=== PATIENT | male | born 1950 | race Caucasian/White ===

== ENCOUNTER 2017-08-19 11:49 | Outpatient (CLI) | payer OTHER ==
--- NOTE | 2017-08-19 17:02 | XRAY Report ---
LEFT FINGERS: 08/19/2017 COMPARISON: None. INDICATION: Chronic left 4th digit pain. FINDINGS: There is gross soft tissue swelling about the middle finger proximal interphalangeal joint. No defini te erosions are seen. No evidence of acute fracture. Alignment appears anatomic. IMPRESSION: THERE IS GROSS SOFT TISSUE SWELLING OF THE THIRD PIP JOINT. CORRELATE CLINICALLY FOR INF ECTION OR OTHER PROCESS. JOB #: [id number] EXT JOB #:[id number]
== END 2017-08-19 11:50 | disposition home or self-care (01) ==
LOC: DI 11:49
PROVIDERS: ATTEND Family Medicine
DX: M10.9 Gout, unspecified (principal)
CPT/HCPCS: 73140

== ENCOUNTER 2020-01-11 07:03 | Outpatient (CLI) | payer MEDICARE ==
[2020-01-11 10:31] LABS: ALBUMIN 4.1 g/dL (3.2-5.5); ALBUMIN/GLOBULIN RATIO 1.2 (1.0-2.2); ALKALINE PHOSPHATASE 65 IU/L (42-121); ALT ALANINE AMINOTRANSFERASE 41 IU/L (10-60); AST ASPARTATE AMINOTRANSFERASE 29 IU/L (10-42); BILIRUBIN,TOTAL 1.1 mg/dL (0.2-1.0); BUN - BLOOD UREA NITROGEN 23 mg/dL (6-20); CALCIUM 9.2 mg/dL (8.5-10.3); CARBON DIOXIDE - CO2 26 mmol/L (21-32); CHLORIDE 102 mmol/L (101-111); CHOL/HDL RATIO 4.7 (<5.0); CHOLESTEROL 196 mg/dL; CREATININE 1.2 mg/dL (0.6-1.2); GFR - MDRD 60 (>89); GLUCOSE 109 mg/dL (70-100); HDL CHOLESTEROL 42 mg/dL; LDL CHOLESTEROL,CALCULATED 124 mg/dL; SODIUM 136 mmol/L (135-145); TOTAL PROTEIN 7.6 g/dL (6.7-8.2); VLDL CHOLESTEROL 30 mg/dL
== END 2020-01-11 07:04 | disposition home or self-care (01) ==
LOC: LAB.S 07:03
PROVIDERS: ATTEND Internal Medicine
DX: I10 Essential (primary) hypertension (principal); Z12.5 Encounter for screening for malignant neoplasm of prostate
CPT/HCPCS: 36415; 80053; 80061; 83721; 84153

== ENCOUNTER 2020-01-11 07:49 | Outpatient (CLI) | payer MEDICARE ==
--- NOTE | 2020-01-11 15:02 | Ultrasound Report ---
Reason: HX OF TOBACCO USE Procedure Date: 01/11/2020 Accession Number: [id number] / [id number] Procedure: US - Aorta Screening CPT Code: Final Report FULL RESULT: EXAM: AORTIC DOPPLER ULTRASOUND EXAM DATE: 01/11/2020 08:40 AM. CLINICAL HISTORY: History of tobacco use and hypertension. Screening for abdominal aortic aneurysm. COMPARISON: None. TECHNIQUE: Real-time sonographic imaging of retroperitoneal vascular structures, including color-flow, Doppler flow and spectral analysis was performed by the data processing auditor. Multiple home office representative static images were saved for review. FINDINGS: Aorta: The abdominal aorta was adequately visualized. No evidence for abdominal aortic aneurysm. Aorta proximal: Sagittal plane AP 2.6 x 2.3 cm. Aorta mid: Transverse: 2.3 x 1.9 cm. Aorta distal: Transverse: 1.5 x 1.8 cm. Caliber within normal limits: Yes. Plaque Visualized: Yes aorta distally. Right iliac: Transverse: 1.2 x 1.3 cm. Left iliac: Transverse: 1.3 x 1.4 cm. Iliac Vessels: The visualized proximal common iliac arteries are normal in caliber. Other: None. IMPRESSION: No abdominal aortic aneurysm. RADIA
== END 2020-01-11 07:50 | disposition home or self-care (01) ==
LOC: DI 07:49
PROVIDERS: ATTEND Internal Medicine
DX: Z00.00 Encounter for general adult medical examination without abnormal findings (principal); Z13.6 Encounter for screening for cardiovascular disorders; Z87.891 Personal history of nicotine dependence; I10 Essential (primary) hypertension; Z12.5 Encounter for screening for malignant neoplasm of prostate
CPT/HCPCS: 36415; 76706; 80053; 80061; G0103; 83721; 84153

== ENCOUNTER 2020-01-18 13:33 | Outpatient (CLI) | payer MEDICARE | END 2020-01-18 13:34 | disposition home or self-care (01) | LOC: LAB.S 13:33 | PROVIDERS: ATTEND Registered Nurse | DX: M1A.9XX0 Chronic gout, unspecified, without tophus (tophi) (principal) | CPT/HCPCS: 36415; 84550 ==

== ENCOUNTER 2021-01-16 07:25 | Outpatient (CLI) | payer MEDICARE ==
[2021-01-16 15:00] LABS: BASOPHILS # (AUTO) 0.1 10^3/uL (0.0-0.1); BASOPHILS % (AUTO) 0.9 %; EOSINOPHILS # (AUTO) 0.4 10^3/uL (0.0-0.7); EOSINOPHILS % (AUTO) 6.3 %; HCT - HEMATOCRIT 45.8 % (42.0-52.0); HGB - HEMOGLOBIN 15.2 g/dL (14.0-18.0); LYMPHOCYTES # (AUTO) 2.3 10^3/uL (1.5-3.5); LYMPHOCYTES % (AUTO) 32.8 %; MEAN CORPUSCULAR HEMOGLOBIN 31.2 pg (27.0-31.0); MEAN CORPUSCULAR HGB CONC 33.2 g/dL (32.0-36.0); MEAN PLATELET VOLUME 11.5 fL (7.4-11.4); MONOCYTES # (AUTO) 0.7 10^3/uL (0.0-1.0); MONOCYTES % (AUTO) 10.5 %; NEUTROPHILS # (AUTO) 3.4 10^3/uL (1.5-6.6); NEUTROPHILS % (AUTO) 49.4 %; PLT - PLATELET COUNT 207 10^3/uL (130-450); RED BLOOD COUNT 4.87 10^6/uL (4.70-6.10); RED CELL DISTRIBUTION WIDTH 13.8 % (12.0-15.0)
[2021-01-16 16:14] LABS: ALBUMIN 3.9 g/dL (3.2-5.5); ALBUMIN/GLOBULIN RATIO 1.1 (1.0-2.2); ALKALINE PHOSPHATASE 68 IU/L (42-121); ALT ALANINE AMINOTRANSFERASE 42 IU/L (10-60); AST ASPARTATE AMINOTRANSFERASE 31 IU/L (10-42); BILIRUBIN,TOTAL 0.9 mg/dL (0.2-1.0); BUN - BLOOD UREA NITROGEN 19 mg/dL (6-20); CALCIUM 9.3 mg/dL (8.5-10.3); CARBON DIOXIDE - CO2 25 mmol/L (21-32); CHLORIDE 103 mmol/L (101-111); CHOLESTEROL 163 mg/dL; CREATININE 1.1 mg/dL (0.6-1.2); GFR - MDRD 67 (>89); GLUCOSE 107 mg/dL (70-100); HDL CHOLESTEROL 41 mg/dL; LDL CHOLESTEROL,CALCULATED 105 mg/dL; LDL/HDL RATIO 2.6 (<3.6); POTASSIUM 4.2 mmol/L (3.5-5.0); SODIUM 136 mmol/L (135-145); TOTAL PROTEIN 7.4 g/dL (6.7-8.2); TRIGLYCERIDES 83 mg/dL; URIC ACID 5.5 mg/dL (2.6-7.2); VLDL CHOLESTEROL 17 mg/dL
== END 2021-01-16 07:26 | disposition home or self-care (01) ==
LOC: LAB.S 07:25
PROVIDERS: ATTEND Internal Medicine
DX: I10 Essential (primary) hypertension (principal); M1A.9XX0 Chronic gout, unspecified, without tophus (tophi); Z12.5 Encounter for screening for malignant neoplasm of prostate
CPT/HCPCS: 36415; 80053; 80061; 84550; 85025; G0103; 83721; 84153

== ENCOUNTER 2021-02-19 10:53 | Outpatient (CLI) | payer MEDICARE ==
--- NOTE | 2021-02-19 12:45 | CARDIAC PROCEDURE NOTE ---
Stress Test Report Service Date: 02/19/21 Ordering Provider: Dr Cristhian Knpap Indication for Test: Shortness of breath Cardiac Risk Factors: Male gender, HTN, ex-smoker. Type of Stress Test: Exercise Treadmill Test (ETT) Procedure: After signing informed consent, the patient underwent a Paco-protocol treadmill stress test. No cardiac imaging was ordered with this test. Resting heart rate: 66 Peak heart rate: 140 (92% pred maximum heart rate for age) Resting BP: 149/83 Peak BP: 197/81 The patient exercised for 7 min on a Paco-protocol treadmill. He achieved a peak HR of 142 (92% PMHR) and 8.6 METS. He developed moderate SOB with exercise, but had no chest pain. O2 sat was 95% at rest on room air and dropped with exercise, the lowest saturation was 88% (on room air). He reported his perceived exertion as 15/20 on the Jonny scale at peak. Resting EKG: Normal sinus rhythm, LVH voltage. EKG at peak: [address] segment depressions in leads II, III, AVF and V4- V6 with flat T waves in V4-V6. Summary: 1) Abnormal resting EKG suggesting LVH is present. 2) Hypertensive BP response to exercise. 3) Significant oxygen desaturation to 88% on room air occurs with exercise. 4) Non-specific EKG changes develop with exercise, cannot R/O ischemia. 5) No cardiac imaging was ordered with this test. IMPRESSIONS: 1) Poor exercise tolerance. 2) Oxygen desaturation with exercise is significant. 3) Cannot R/O coronary ischemia from this test. 4) This patient's cardiac risk: High RECOMMENDATIONS: 1) PFTs 2) Consider obtaining an Echocardiogram to evaluate for LVH. 3) Repeat stress test with cardiac imaging is advised.
== END 2021-02-19 10:54 | disposition home or self-care (01) ==
LOC: DI 10:53
PROVIDERS: ATTEND Internal Medicine
DX: R06.02 Shortness of breath (principal); R94.31 Abnormal electrocardiogram [ECG] [EKG]

== ENCOUNTER 2021-03-14 09:39 | Outpatient (CLI) | payer MEDICARE | END 2021-03-14 09:40 | disposition home or self-care (01) | LOC: RT 09:39 | PROVIDERS: ATTEND Internal Medicine | DX: R06.02 Shortness of breath (principal) | CPT/HCPCS: 94010 ==

== ENCOUNTER 2021-05-19 12:54 | Outpatient (CLI) | payer MEDICARE ==
--- NOTE | 2021-05-19 15:00 | MRI Report ---
PROCEDURE: Lumbar Spine W/O INDICATIONS: LUMBAR RADICULOPATHY, LUMBAR SPINAL FUSION TECHNIQUE: Noncontrast sagittal T1 spin echo and T2 fast echo, sagittal STIR, axial T1 and T2 fast spin echo thr ough the lumbar spine. Axial and oblique coronal T1 spin echo and STIR through the sacrum. In cases with scoliosis, additional coronal T2 fast spin echo may be performed. COMPARISON: None. FINDINGS: Alignment and Curvature: Mild levocurvature of the lumbar spine. Straightening of the normal lordoti c curvature. Bone Marrow: Multilevel endplate degenerative sclerosis and spurring. Diffuse facet arthropathy. No evidence of acute fracture. Few scattered endplate Schmorl's nodes. Spinal Cord: Conus medullaris terminates at the L1 level. Visualized cord demonstrates normal signa l and size. Paraspinous Soft Tissues: No paravertebral masses. Presumed bilateral T2 hyperintense renal cysts, technically nonspecific. T12-L1: Normal in appearance. L1-L2: No canal or left foraminal narrowing.Mild right foraminal narrowing. L2-L3: Mild to moderate canal narrowing. Partial effacement of the left and right lateral recesses with symmetric appearance. Mild bilateral foraminal stenoses. L3-L4: Mild to moderate canal narrowing. Partial effacement of the left and right lateral recesses with symmetric appearance. Moderate left and severe right foraminal stenosis, with slight nerve root compression on the right. L4-L5: Mild canal narrowing. Partial effacement of the left and right lateral recesses with symmetr ic appearance. Moderate bilateral foraminal narrowing. L5-S1: No canal or lateral recess narrowing. Severe right foraminal stenosis with nerve root compre ssion. Moderate to severe left foraminal stenosis. Sacrum: Visualized sacral plexus appears normal. IMPRESSION: Mild levocurvature. Numerous bilateral foraminal stenoses as detailed above by spinal level. Mild to moderate canal narro wing L2-L3 and L3-L4. Straightening of the normal lordotic curvature. Reviewed by: Tunde Boothe MD on 05/19/2021 2:58 PM PDT Approved by: Tunde Boothe MD on 05/19/2021 2:58 PM PDT Station ID: [id number]
== END 2021-05-19 12:55 | disposition home or self-care (01) ==
LOC: DI 12:54
PROVIDERS: ATTEND Internal Medicine
DX: M48.061 Spinal stenosis, lumbar region without neurogenic claudication (principal)

== ENCOUNTER 2022-01-22 08:24 | Outpatient (CLI) | payer MEDICARE ==
[2022-01-22 15:18] LABS: BASOPHILS # (AUTO) 0.1 10^3/uL (0.0-0.1); BASOPHILS % (AUTO) 0.7 %; EOSINOPHILS # (AUTO) 0.3 10^3/uL (0.0-0.7); EOSINOPHILS % (AUTO) 3.3 %; HCT - HEMATOCRIT 44.2 % (42.0-52.0); HGB - HEMOGLOBIN 14.8 g/dL (14.0-18.0); LYMPHOCYTES # (AUTO) 2.5 10^3/uL (1.5-3.5); LYMPHOCYTES % (AUTO) 33.2 %; MEAN CORPUSCULAR HEMOGLOBIN 31.4 pg (27.0-31.0); MEAN CORPUSCULAR HGB CONC 33.5 g/dL (32.0-36.0); MEAN CORPUSCULAR VOLUME 93.8 fL (80.0-94.0); MEAN PLATELET VOLUME 11.3 fL (7.4-11.4); MONOCYTES # (AUTO) 0.7 10^3/uL (0.0-1.0); MONOCYTES % (AUTO) 9.3 %; NEUTROPHILS % (AUTO) 53.2 %; PLT - PLATELET COUNT 218 10^3/uL (130-450); RED BLOOD COUNT 4.71 10^6/uL (4.70-6.10); RED CELL DISTRIBUTION WIDTH 13.2 % (12.0-15.0); WHITE BLOOD COUNT 7.5 x10^3/uL (4.8-10.8)
[2022-01-22 15:43] LABS: ALBUMIN 3.6 g/dL (3.2-5.5); ALBUMIN/GLOBULIN RATIO 1.1 (1.0-2.2); ALKALINE PHOSPHATASE 65 IU/L (42-121); ALT ALANINE AMINOTRANSFERASE 32 IU/L (10-60); AST ASPARTATE AMINOTRANSFERASE 29 IU/L (10-42); BILIRUBIN,TOTAL 0.8 mg/dL (0.2-1.0); BUN - BLOOD UREA NITROGEN 29 mg/dL (6-20); CALCIUM 9.1 mg/dL (8.5-10.3); CARBON DIOXIDE - CO2 24 mmol/L (21-32); CHLORIDE 102 mmol/L (101-111); CHOL/HDL RATIO 4.5 (<5.0); CHOLESTEROL 176 mg/dL; CREATININE 1.3 mg/dL (0.6-1.2); GFR - MDRD 55 (>89); GLUCOSE 107 mg/dL (70-100); HDL CHOLESTEROL 39 mg/dL; LDL CHOLESTEROL,CALCULATED 120 mg/dL; LDL/HDL RATIO 3.1 (<3.6); POTASSIUM 4.9 mmol/L (3.5-5.0); SODIUM 135 mmol/L (135-145); TOTAL PROTEIN 6.9 g/dL (6.7-8.2); TRIGLYCERIDES 87 mg/dL; VLDL CHOLESTEROL 17 mg/dL
== END 2022-01-22 08:25 | disposition home or self-care (01) ==
LOC: LAB.S 08:24
PROVIDERS: ATTEND Internal Medicine
DX: I10 Essential (primary) hypertension (principal); E78.5 Hyperlipidemia, unspecified; Z12.5 Encounter for screening for malignant neoplasm of prostate
CPT/HCPCS: 36415; 80053; 80061; 85025; G0103; 83721; 84153

== ENCOUNTER 2022-08-10 08:00 | Outpatient (CLI) | payer MEDICARE | END 2022-08-10 23:59 | disposition home or self-care (01) | LOC: LAB.S 08:00 | PROVIDERS: ATTEND Physician Assistant | DX: J34.89 Other specified disorders of nose and nasal sinuses (principal) | CPT/HCPCS: 87070; 87181; 87205 ==

== ENCOUNTER 2023-01-13 17:11 | Outpatient (CLI) | payer MEDICARE ==
--- NOTE | 2023-01-14 09:09 | XRAY Report ---
PROCEDURE: Foot 3 View LT INDICATIONS: UNSPECIFIED SPRAIN OF LEFT FOOT INITIAL ENCOUNTER TECHNIQUE: 3 views of the foot were acquired. COMPARISON: None FINDINGS: Bones: No fractures or dislocations. No suspicious bony lesions. Plantar calcaneal enthesophyte. Soft tissues: No tibiotalar joint effusion. Achilles tendon appears normal. IMPRESSION: No acute bony abnormality. Reviewed by: Daren Warren on 01/14/2023 9:07 AM PDT Approved by: Daren Warren on 01/14/2023 9:07 AM PDT Station ID: [id number]
--- NOTE | 2023-01-14 09:12 | XRAY Report ---
PROCEDURE: Ankle 3 View LT INDICATIONS: SPRAIN OF CALCANEOFIBULAR LIGAMENT OF LEFT ANKLE TECHNIQUE: 3 views of the ankle were acquired. COMPARISON: None FINDINGS: Bones: No fractures or dislocations. Ankle mortise is normally aligned. No suspicious bony lesions . Soft tissues: No tibiotalar joint effusion. Achilles tendon appears normal. IMPRESSION: No displaced fracture. Reviewed by: Daren Warren on 01/14/2023 9:11 AM PDT Approved by: Daren Warren on 01/14/2023 9:11 AM PDT Station ID: [id number]
== END 2023-01-13 17:12 | disposition home or self-care (01) ==
LOC: DI 17:11
PROVIDERS: ATTEND Emergency Medicine
DX: S93.412A Sprain of calcaneofibular ligament of left ankle, initial encounter (principal); S93.602A Unspecified sprain of left foot, initial encounter

== ENCOUNTER 2023-04-05 07:56 | Outpatient (CLI) | payer MEDICARE ==
[2023-04-05 14:49] LABS: BASOPHILS # (AUTO) 0.1 10^3/uL (0.0-0.1); BASOPHILS % (AUTO) 0.9 %; EOSINOPHILS # (AUTO) 0.3 10^3/uL (0.0-0.7); EOSINOPHILS % (AUTO) 4.1 %; HCT - HEMATOCRIT 42.6 % (42.0-52.0); HGB - HEMOGLOBIN 13.8 g/dL (14.0-18.0); LYMPHOCYTES # (AUTO) 2.2 10^3/uL (1.5-3.5); LYMPHOCYTES % (AUTO) 27.8 %; MEAN CORPUSCULAR HEMOGLOBIN 30.7 pg (27.0-31.0); MEAN CORPUSCULAR HGB CONC 32.4 g/dL (32.0-36.0); MEAN CORPUSCULAR VOLUME 94.9 fL (80.0-94.0); MEAN PLATELET VOLUME 11.7 fL (7.4-11.4); MONOCYTES % (AUTO) 12.6 %; NEUTROPHILS # (AUTO) 4.4 10^3/uL (1.5-6.6); NEUTROPHILS % (AUTO) 54.4 %; PLT - PLATELET COUNT 183 10^3/uL (130-450); RED BLOOD COUNT 4.49 10^6/uL (4.70-6.10)
[2023-04-05 15:37] LABS: ALBUMIN 3.8 g/dL (3.2-5.5); ALKALINE PHOSPHATASE 64 IU/L (42-121); ALT ALANINE AMINOTRANSFERASE 33 IU/L (10-60); AST ASPARTATE AMINOTRANSFERASE 40 IU/L (10-42); BILIRUBIN,TOTAL 0.7 mg/dL (0.2-1.0); BUN - BLOOD UREA NITROGEN 34 mg/dL (6-20); CALCIUM 9.4 mg/dL (8.5-10.3); CARBON DIOXIDE - CO2 26 mmol/L (21-32); CHLORIDE 105 mmol/L (101-111); CHOL/HDL RATIO 3.6 (<5.0); CHOLESTEROL 154 mg/dL; CREATININE 1.4 mg/dL (0.6-1.2); GFR - MDRD 50 (>89); GLUCOSE 117 mg/dL (70-100); HDL CHOLESTEROL 43 mg/dL; LDL CHOLESTEROL,CALCULATED 89 mg/dL; LDL/HDL RATIO 2.1 (<3.6); POTASSIUM 4.4 mmol/L (3.5-5.0); SODIUM 140 mmol/L (135-145); TOTAL PROTEIN 7.6 g/dL (6.7-8.2); TRIGLYCERIDES 110 mg/dL; VLDL CHOLESTEROL 22 mg/dL
[2023-04-05 15:48] LABS: THYROID STIMULATING HORMONE 2.63 uIU/mL (0.34-5.60)
== END 2023-04-05 07:57 | disposition home or self-care (01) ==
LOC: LAB.S 07:56
PROVIDERS: ATTEND Internal Medicine
DX: M1A.9XX0 Chronic gout, unspecified, without tophus (tophi) (principal); Z79.899 Other long term (current) drug therapy
CPT/HCPCS: 36415; 80053; 80061; 83721; 84443; 84550; 85025

== ENCOUNTER 2023-04-06 11:56 | Outpatient (CLI) | payer MEDICARE ==
--- NOTE | 2023-04-06 12:16 | XRAY Report ---
PROCEDURE: Chest 2 View X-Ray INDICATIONS: DYSPNEA ON EXERTION TECHNIQUE: 2 views of the chest were acquired. COMPARISON: None. FINDINGS: Surgical changes and devices: None. Lungs and pleura: Diffuse reticulation. Mediastinum: Mediastinal contours appear normal. Heart size is normal. Bones and chest wall: No suspicious bony lesions. Overlying soft tissues appear unremarkable. IMPRESSION: Diffuse reticulation, which could represent pulmonary edema or interstitial lung disease. If there re isha a high clinical concern for interstitial lung disease, consider CT for further characterization (high-resolution chest CT). Reviewed by: Daren Warren on 04/06/2023 12:15 PM PDT Approved by: Daren Warren on 04/06/2023 12:15 PM PDT Station ID: [id number]
== END 2023-04-06 11:57 | disposition home or self-care (01) ==
LOC: DI.S 11:56
PROVIDERS: ATTEND Internal Medicine
DX: R06.09 Other forms of dyspnea (principal); E78.5 Hyperlipidemia, unspecified; M1A.9XX0 Chronic gout, unspecified, without tophus (tophi); R91.8 Other nonspecific abnormal finding of lung field

== ENCOUNTER 2023-04-13 09:29 | Outpatient (CLI) | payer MEDICARE ==
--- NOTE | 2023-04-13 22:17 | CT Report ---
PROCEDURE: CHEST WO INDICATIONS: DYSPNEA ON EXERTION, ABN CXR TECHNIQUE: Noncontrast 1mm axial images were acquired from the pulmonary apices to the posterior costophrenic an gles. Axial 5 mm soft tissue kernel reconstructions were performed as well as 8 mm axial MIP and cor onal and sagittal 5 mm reformations. For radiation dose reduction, the following was used: automate d exposure control, adjustment of mA and/or kV according to patient size. COMPARISON: Chest radiograph dated 04/06/2023 FINDINGS: Image quality: Excellent. Lungs and pleura: Subpleural reticular opacities noted in the bilateral hemithoraces involving all lo bes of the lungs. There is trace bronchiectasis adjacent to areas of subpleural reticulation involvin g the anterior aspect of the bilateral upper lobes. No significant airway thickening visualized. No h oneycombing identified. No suspicious pulmonary nodules or masses. No septal thickening or nodularity . No pleural effusions. No pneumothorax. Mediastinum: Heart size is normal. No pericardial effusion. No large vessel abnormality. Multiple sca ttered mediastinal lymph nodes more notable for number rather than size and likely reactive in etiolo gy. No hilar adenopathy. Atherosclerosis. Chest wall and lower neck: Thyroid is unremarkable. No axillary or supraclavicular adenopathy by size . Bones: No aggressive osseous abnormality. No acute compression fractures. Mild multilevel thoracic sp ondylosis. Upper Abdomen: Bilateral renal hypodensities likely representing cysts. Otherwise, upper abdomen with out acute abnormalities. Small hiatal hernia. IMPRESSION: 1. Bilateral subpleural reticular opacities involving all lobes of the lungs with trace bronchiectasi s of the anterior aspect of the bilateral upper lobes. Findings may represent interstitial lung disea se and scarring with possible early fibrosis. No focal mass or suspicious pulmonary nodules. No septa l thickening or nodularity. 2. Otherwise, no acute cardiopulmonary abnormalities. 3. Mild atherosclerotic vascular calcifications. 4. Small hiatal hernia. 5. Multiple mediastinal lymph nodes more notable for number rather than size and are likely reactive in etiology. Attention can be made on follow-up imaging. Reviewed by: Imtiaz Mendieta MD on 04/13/2023 10:16 PM PDT Approved by: Imtiaz Mendieta MD on 04/13/2023 10:16 PM PDT Station ID: [id number]
== END 2023-04-13 09:30 | disposition home or self-care (01) ==
LOC: DI 09:29
PROVIDERS: ATTEND Internal Medicine
DX: R91.8 Other nonspecific abnormal finding of lung field (principal); J47.9 Bronchiectasis, uncomplicated

== ENCOUNTER 2023-07-27 08:09 | Day surgery (SDC) | payer MEDICARE ==
[2023-07-27] MEDS ORDERED: LACTATED RINGERS 1,000 ML IV ONE ×2 (08:12→10:46)
[2023-07-27] MEDS ORDERED: PROPOFOL 500 MG/50 ML 500 MG/50 ML VIAL ONE (09:31)
[2023-07-27] MEDS ORDERED: MIDAZOLAM 2 MG/2 ML VIAL ONE (09:42)
--- NOTE | 2023-07-27 09:52 | ANESTHESIA ---
Pre-Anesthesia VS, & Labs - Diagnosis screening - Procedure colonoscopy Vital Signs: Temp Pulse Resp BP Pulse Ox O2 Flow Rate 36.4 C L 56 L 19 150/81 H 95 07/27/23 08:12 07/27/23 08:12 07/27/23 08:12 07/27/23 08:12 07/27/23 08:12 Height: 6 ft Weight (kg): 98.7 kg Body Mass Index: 29.5 BMI Classification: Overweight - NPO >8 hours Last Fluid Intake: am prep - Lab Results Lab results reviewed: Yes Home Medications and Allergies Home Medications: Ambulatory Orders allopurinoL [Allopurinol] 1 tab PO DAILY 07/26/23 lisinopriL [Prinivil] 10 mg PO DAILY 03/20/14 allopurinoL [Allopurinol] 1 tab PO DAILY 07/26/23 Allergies/Adverse Reactions: Allergies Allergy/AdvReac Type Severity Reaction Status Date / Time Orion nut Allergy Anaphylaxis Verified 07/26/23 14:52 tetracycline [Tetracycline] AdvReac Nausea Verified 07/26/23 14:51 Anes History & Medical History - Anesthetic History Anesthesia Complications: reports: No previous complications Family history of Anesthesia Complications: Denies Family history of Malignant Hyperthermia: Denies - Medical History Cardiovascular: reports: Hypertension Pulmonary: reports: None Gastrointestinal: reports: Chronic constipation Urinary: reports: None Musculoskeletal: reports: None Endocrine/Autoimmune: reports: None Skin: reports: None - Surgical History General: reports: Appendectomy, Colonoscopy Orthopedic: reports: Spine surgery Exam General: Alert, Oriented x3, Cooperative Dental: WNL Mouth Openin Fingerbreadth Neck Mobility: Normal Mallampati classification: II Thyromental Distance: 4-6 cm Respiratory: Lungs clear, Normal breath sounds, No respiratory distress Cardiovascular: Regular rate Mental/Cognitive Status: Alert/Oriented X3, Normal for patient Cognitive Status: Within normal limits Plan Anesthesia Type: Total IV Consent for Procedure(s) Verified and Reviewed: Yes Code Status: Attempt Resuscitation ASA classification: 2-Mild systemic disease Is this case an emergency?: No
[2023-07-27] MEDS ORDERED: GLYCOPYRROLATE 1 MG/5 ML VIAL ONE (10:15)
--- NOTE | 2023-07-27 10:58 | ANESTHESIA POST OP EVALUATION ---
Anesthesia Post Eval - Post Anesthesia Eval Vitals: Last Vital Signs Temp 36.2 C L 07/27/23 10:45 Pulse 72 07/27/23 10:45 Resp 16 07/27/23 10:45 BP 95/54 L 07/27/23 10:45 Pulse Ox 96 07/27/23 10:45 O2 Flow Rate CV Function Including HR & BP: Stable Pain Control: Satisfactory Nausea & Vomiting: Negative Mental Status: Baseline Respiratory Status: Airway Patent Hydration Status: Satisfactory Anesthesia Complications: None
[2023-07-27 11:04] VITALS: BP 103/61; O2SAT 98
== END 2023-07-27 08:10 | disposition home or self-care (01) ==
LOC: SDS 08:09
PROVIDERS: ATTEND Surgery
PROC: 0DBL8ZX Excision of Transverse Colon, Via Natural or Artificial Opening Endoscopic, Diagnostic (ICD-10-PCS; 2023-07-27)
PROC: 0DBQ8ZX Excision of Anus, Via Natural or Artificial Opening Endoscopic, Diagnostic (ICD-10-PCS; principal; 2023-07-27 09:00)
DX: Z12.11 Encounter for screening for malignant neoplasm of colon (principal); D12.3 Benign neoplasm of transverse colon; D01.3 Carcinoma in situ of anus and anal canal; I10 Essential (primary) hypertension; Z87.891 Personal history of nicotine dependence
CPT/HCPCS: 45380; 45385; J7120

== ENCOUNTER 2023-10-20 12:38 | Outpatient (CLI) | payer MEDICARE ==
[2023-10-20 15:09] LABS: PSA TOTAL 1.775 ng/mL (0.000-2.000)
== END 2023-10-20 12:39 | disposition home or self-care (01) ==
LOC: LAB.S 12:38
PROVIDERS: ATTEND Internal Medicine
DX: N52.9 Male erectile dysfunction, unspecified (principal)
CPT/HCPCS: 36415; 84153; 84403

== ENCOUNTER 2024-05-25 11:18 | Outpatient (CLI) | payer MEDICARE | END 2024-05-25 11:19 | disposition home or self-care (01) | LOC: LAB.S 11:18 | PROVIDERS: ATTEND Internal Medicine | DX: N18.9 Chronic kidney disease, unspecified (principal); Z79.899 Other long term (current) drug therapy | CPT/HCPCS: 81599 ==

== ENCOUNTER 2024-06-06 13:12 | Outpatient (CLI) | payer MEDICARE ==
--- NOTE | 2024-06-07 18:39 | Ultrasound Report ---
PROCEDURE: Renal (Retroperitoneal) INDICATIONS: CKD TECHNIQUE: Real-time scanning was performed of the retroperitoneal organs, with image documentation. COMPARISON: None. FINDINGS: Kidneys: Kidneys are normal in size. Right kidney measures 12.1 cm long; left kidney measures 11.6 cm long. Right renal cortical thickness is 1.3 cm; left renal cortical thickness is 1.8 cm. No bryson d masses, hydronephrosis, or nephrolithiasis. Bilateral renal cysts measure up to 4.5 cm on the right and 2.9 cm left Bladder: Pre-void bladder volume is 207 mL. Post-void residual is 45 mL. Pre-void images demonstra te no intraluminal masses or stones. On pre-void images, bilateral ureteral jets are noted with colo r Doppler interrogation. (Of note, ureteral jets may not be detectable in up to 25% of cases due to insufficient differences in specific gravity between ureteral and bladder urine). Miscellaneous: Prostate measures 3.6 x 4.0 x 4.5 cm IMPRESSION: Hypertrophic prostate with small postvoid residual Bilateral renal cysts without hydronephrosis Reviewed by: All Mejia MD on 06/07/2024 5:38 PM AKDT Approved by: All Mejia MD on 06/07/2024 5:38 PM AKDT Station ID: [id number]
== END 2024-06-06 13:13 | disposition home or self-care (01) ==
LOC: DI 13:12
PROVIDERS: ATTEND Internal Medicine
DX: N18.9 Chronic kidney disease, unspecified (principal); N28.1 Cyst of kidney, acquired; N40.0 Benign prostatic hyperplasia without lower urinary tract symptoms